=== PATIENT | female | born 1970 | race American Indian/Alaskan Native ===

== ENCOUNTER 2016-11-22 18:22 | Emergency (ER) | payer OTHER, MEDICAID ==
[2016-11-22 18:22] VITALS: BMI 24.2
[2016-11-22 18:37] VITALS: BP 127/86; PULSE 88; TEMP 99
[2016-11-22 18:56] VITALS: RESP 18; O2SAT 98
--- NOTE | 2016-11-22 19:04 | ED PDOC ---
Arrival/HPI - General Chief Complaint: Flu-like Symptoms Time Seen by Provider: 11/22/16 18:51 Historian: Patient - History of Present Illness Narrative History of Present Illness (Text): 11/22/16 19:07 46 year old female presents to the emergency department with dry cough, congestion, sore throat, and sinus pressure. Denies shortness of breath, chest pain, dyspnea on exertion. Time/Duration: < week Symptom Onset: Gradual Symptom Course: Unchanged Modifying Factors (Text): None Past Medical History - Provider Review Nursing Documentation Reviewed: Yes - Infectious Disease Hx of Infectious Diseases: None - Cardiac Hx Cardiac Disorders: No - Pulmonary Hx Asthma: Yes - Neurological Hx Neurological Disorder: No - HEENT Hx HEENT Disorder: No - Renal Hx Renal Disorder: No - Endocrine/Metabolic Hx Endocrine Disorders: No - Hematological/Oncological Hx Blood Disorders: No - Integumentary Hx Dermatological Disorder: No - Musculoskeletal/Rheumatological Hx Musculoskeletal Disorders: No - Gastrointestinal Hx Gastrointestinal Disorders: Yes Hx Gastrointestinal Ulcer: Yes - Genitourinary/Gynecological Hx Genitourinary Disorders: No - Psychiatric Hx Psychophysiologic Disorder: No Hx Substance Use: No - Surgical History Hx Musculoskeletal Surgery: Yes - Anesthesia Hx Anesthesia: Yes Family/Social History - Physician Review Nursing Documentation Reviewed: Yes Family/Social History: Unknown Family HX Smoking Status: Never Smoked Hx Alcohol Use: Yes Hx Substance Use: No Allergies/Home Meds Allergies/Adverse Reactions: Allergies ibuprofen Allergy (Verified 11/22/16 18:32) SHORTNESS OF BREATH Penicillins Allergy (Verified 11/22/16 18:32) RASH seafood Allergy (Uncoded 11/22/16 18:32) ANAPHYLAXIS Home Medications: Home Meds Medication Instructions Recorded Confirmed Montelukast [Singulair] 10 mg PO DAILY 11/22/16 11/22/16 Prednisolone [Millipred] 5 mg PO BID 11/22/16 11/22/16 Review of Systems - Physician Review All systems were reviewed & negative as marked: Yes - Review of Systems Constitutional: absent: Weight Change, Fevers, Night Sweats Eyes: Normal ENT: Sore Throat, Rhinorrhea, Sinus Congestion. absent: Epistaxis Respiratory: Cough. absent: SOB, Sputum, Wheezing Cardiovascular: Normal. absent: Chest Pain, Palpitations, JIN Gastrointestinal: Normal. absent: Abdominal Pain, Nausea, Vomiting (contrary to triage, pt denies vomiting) Genitourinary Female: Normal Musculoskeletal: Normal Skin: Normal. absent: Rash, Pruritis Neurological: Normal. absent: Headache, Dizziness Endocrine: Normal Hemo/Lymphatic: Normal Psychiatric: Normal Physical Exam - Physical Exam Narrative Physical Exam (Text): 11/22/16 19:03 - Physical exam Patient appears age appropriate, speaking full sentences without difficulty - Systems Exam Head: Present: Atraumatic, Normocephalic Pupils: Present: PERRL Extraocular Muscles: Present: EOMI Conjunctiva: Present: Normal ENT: Erythematous posterior pharynx, Normal TM bilaterally, no erythema. No trismus. No pain with hyoid manipulation, No muffled voice, no floor of mouth pain or elevation Mouth: Present: Moist Mucous Membranes Neck: Present: Normal Range of Motion. No: MIDLINE TENDERNESS, Paraspinal Tenderness Respiratory/Chest: Present: Clear to Auscultation, Good Air Exchange. No: Respiratory Distress, Accessory Muscle Use, Tachypneic Cardiovascular: Present: Regular Rate and Rhythm, Normal S1, S2, Peripheral Pulses Present. No: Murmurs Abdomen: Present: Normal Bowel Sounds, No: Tenderness, Peritoneal Signs, Rebound, Guarding, Distention Back: Present: Normal Inspection. No: Midline Tenderness, Paraspinal Tenderness Upper Extremity: Present: Normal Inspection. No: Cyanosis, Edema Lower Extremity: Present: Normal Inspection. No: Edema Neurological: Present: GCS=15, Speech Normal, cranial nerves II through XII fully intact with no cerebellar abnormality, neuro-sensory fully intact. No focal neurological deficits. Skin: Present: Warm, Dry, Normal Color. No: Rashes Lymphatic: Present: OX3, NI, NC Psychiatric: Present: Alert, Oriented x 3, Normal Insight, Normal Concentration Vital Signs Reviewed: Yes Vital Signs Temp Pulse Resp BP Pulse Ox 11/22/16 18:53 99.0 F 88 18 127/86 98 11/22/16 18:33 99.0 F 88 17 127/86 100 Temperature: Afebrile Blood Pressure: Normal Pulse: Regular Respiratory Rate: Normal Appearance: Positive for: Well-Appearing Pain Distress: None Mental Status: Positive for: Alert and Oriented X 3 Medical Decision Making ED Course and Treatment: 11/22/16 20:47 46-year-old female with URI symptoms, no acute findings on physical examination. Patient instructed to follow up with a primary physician, antibiotics prescription given Patient states that she feels comfortable being discharged home with outpatient follow-up. Pt states she understands to return to the ER right away for new or worsening symptoms or for inability to f/u with PMD or specialist as instructed. Patient states that she fully agrees with and understands discharge instructions. States that she agrees with the plan and disposition. Verbalized and repeated discharge instructions and plan. I have given the patient opportunity to ask any additional questions. Disposition/Present on Arrival - Present on Arrival Any Indicators Present on Arrival: No History of DVT/PE: No History of Uncontrolled Diabetes: No Urinary Catheter: No History of Decub. Ulcer: No History Surgical Site Infection Following: None - Disposition Have Diagnosis and Disposition been Completed?: Yes Diagnosis: URI (upper respiratory infection) Disposition: HOME/ ROUTINE Disposition Time: 19:01 Patient Plan: Discharge Condition: GOOD Discharge Instructions (ExitCare): Upper Respiratory Infection (ED) Additional Instructions: PLEASE RETURN TO THE EMERGENCY DEPARTMENT FOR NEW OR WORSENING SYMPTOMS. RETURN RIGHT AWAY IF YOU CANNOT FOLLOW UP WITH YOUR PRIMARY CARE DOCTOR, CLINIC, OR SPECIALIST IN 1-2 DAYS. Prescriptions: Azithromycin [Zithromax] 250 mg PO DAILY #6 tab Guaifen/Phenyleph/Acetaminophn [Mucinex Fast-Max Cold & Sinus 325 mg-200 mg-5] 1 tab PO Q6 #1 packet Referrals: Hermilo Swartz [Primary Care Provider] - Follow up with primary Ac Newberry MD [Staff Provider] - Follow up with primary [facility] [place] [facility] [Outside] - Follow up with primary Forms: WORK NOTE
== END 2016-11-22 19:22 | disposition home or self-care (01) ==
LOC: ED 18:22
DX: J06.9 Acute upper respiratory infection, unspecified (principal)